=== PATIENT | male | born 1960 | race Two or more races ===

== ENCOUNTER 2019-11-19 11:17 | Emergency (ER) | payer MEDICAID, OTHER ==
[~2019-11-19] VITALS: Ht 160 cm; Wt 65.8 kg
--- NOTE | 2019-11-19 11:32 | NUR ---
PT CAME INTO THE ED C/O FEVER, COUGH W CONGESTION AND L LEG PAIN. PT AAOX4, VSS, BREATHING EVEN AND UNLABORED ON ROOM AIR W/ NAD NOTED. PT CONNECTED TO THE MONITOR AND POX.
[2019-11-19] MEDS ORDERED: IBUPROFEN 600 MG TABLET PO ONE ×2 (11:51→12:00)
[2019-11-19] MEDS ORDERED: ACETAMINOPHEN ES 500 MG TABLET ONE (11:51)
--- NOTE | 2019-11-19 11:54 | NUR ---
Patient discharged to home in stable condition. Written and verbal after care instructions given. Patient verbalizes understanding of instruction.
[2019-11-19 11:57] VITALS: BP 118/71
[2019-11-19] MEDS ORDERED: ACETAMINOPHEN ES 500 MG TABLET PO ONE (12:00)
== END 2019-11-19 11:57 | disposition home or self-care (01) ==
LOC: ER 11:17
DX: J06.9 Acute upper respiratory infection, unspecified (principal); I10 Essential (primary) hypertension